=== PATIENT | female | born 1990 | race Two or more races ===

== ENCOUNTER 2022-12-25 20:17 | Emergency (ER) | payer MEDICAID ==
[~2022-12-25] VITALS: Ht 167.6 cm; Wt 64.0 kg
[2022-12-25 21:41] LABS: EOSINOPHILS % (AUTO) 0.8 % (1.0-6.0); HEMOGLOBIN 12.7 g/dL (12.0-16.0); MEAN CORPUSCULAR VOLUME 87 fL (80-100); MONOCYTES # (AUTO) 0.5 K/uL (0.1-1.0); RED CELL DISTRIBUTION WIDTH 13.2 % (11.5-14.5)
[2022-12-25 21:44] LABS: BASOPHILS % (AUTO) 0.4 % (0.0-2.0); HEMATOCRIT 38.3 % (36-46); LYMPHOCYTES # (AUTO) 2.2 K/uL (1.0-4.8); LYMPHOCYTES % (AUTO) 27.4 % (22.0-44.0); MEAN CORPUSCULAR HEMOGLOBIN 28.8 pg (26.0-34.0); MEAN CORPUSCULAR HGB CONC 33.1 G/dL (31.0-37.0); MONOCYTES % (AUTO) 6.1 % (2.0-9.0); NEUTROPHILS # (AUTO) 5.3 K/uL (1.8-7.7); NEUTROPHILS % (AUTO) 65.3 % (40.0-70.0); PLATELET COUNT (AUTO) 211 K/uL (150-450); RED BLOOD CELL COUNT(AUTO) 4.41 MIL/uL (4.00-5.20)
[2022-12-25 21:55] LABS: ANION GAP 9 mmol/L (8-16); CALCIUM, TOTAL 8.7 mg/dL (8.8-10.5); CARBON DIOXIDE 26 mmol/L (22-29); CHLORIDE 105 mmol/L (98-107); CREATININE 0.79 mg/dL (0.60-1.30); GLUCOSE,RANDOM 89 mg/dL (70-110); POTASSIUM 4.2 mmol/L (3.5-5.1); SODIUM SERUM 140 mmol/L (136-145); UREA NITROGEN, BLOOD 12 mg/dL (7-18)
[2022-12-25 21:58] LABS: GLOMERULAR FILTR. RATE CALC > 60 mL/min (>60)
[2022-12-25 22:02] LABS: ALANINE AMINOTRANSFERASE 25 U/L (12-78); ALKALINE PHOSPHATASE 51 U/L (46-116); ASPARTATE AMINOTRANSFERASE 17 U/L (15-37); BILIRUBIN,TOTAL 0.3 mg/dL (0.1-1.0); TOTAL PROTEIN, SERUM 6.8 g/dL (6.4-8.2)
[2022-12-25] MEDS ORDERED: ACETAMINOPHEN 325 MG TABLET PO ONE (22:30)
[2022-12-25 22:45] VITALS: BP 124/73
== END 2022-12-25 23:20 | disposition home or self-care (01) ==
LOC: EMS 20:20
DX: R20.2 Paresthesia of skin (principal); R55 Syncope and collapse
CPT/HCPCS: 80053; 83735; 85025; 93005; 99284